=== PATIENT | female | born 2005 | race Two or more races ===

== ENCOUNTER 2023-11-20 08:43 | Emergency (ER) | payer MEDICAID, OTHER ==
[~2023-11-20] VITALS: Ht 167.6 cm; Wt 58.4 kg
[2023-11-20 09:54] VITALS: BP 117/81; PULSE 59; RESP 18; TEMP 97.2; O2SAT 100
[2023-11-20] MEDS ORDERED: TRIA0.1O TOP (10:11)
== END 2023-11-20 10:11 | disposition home or self-care (01) ==
LOC: ER 08:43
DX: L20.9 Atopic dermatitis, unspecified (principal)